=== PATIENT | female | born 1965 | race Asian ===

== ENCOUNTER 2018-03-03 07:55 | Inpatient (IN) | payer OTHER, BC ==
[~2018-03-03] VITALS: Ht 154.9 cm; Wt 77.1 kg
[~2018-03-03 07:55] MED LIST: VITAMIN D32000 UNIT PO
--- NOTE | 2018-03-03 09:20 | NUR ---
History, Chart, Medications and Allergies reviewed before start of procedure. Lungs clear T/O to Auscultation.
[2018-03-03 17:06] LABS: BASOPHILS ABSOLUTE AUTO 0.03 K/mm3 (0.00-0.23); BASOPHILS PERCENT AUTO 0 % (0-2); EOSINOPHILS PERCENT AUTO 0 % (0-6); Hematocrit 34.3 % (33.0-51.0); Hemoglobin 10.9 g/dL (11.5-16.0); IMMATURE GRAN ABSOLUTE AUTO 0.04 K/mm3 (0.00-0.10); IMMATURE GRAN PERCENT AUTO 0 % (0-1); LYMPHOCYTES ABSOLUTE AUTO 0.74 K/mm3 (0.84-5.20); LYMPHOCYTES PERCENT AUTO 5 % (21-46); MONOCYTES ABSOLUTE AUTO 0.25 K/mm3 (0.16-1.47); MONOCYTES PERCENT AUTO 2 % (4-13); Mean Corpuscular HGB 28.5 pg (26.0-34.0); Mean Corpuscular HGB Conc 31.8 g/dL (31.5-36.5); Mean Corpuscular Volume 90 fL (80-100); Mean Platelet Volume 11.1 fL (9.1-12.4); NEUTROPHILS ABSOLUTE AUTO 13.27 K/mm3 (1.96-9.15); NEUTROPHILS PERCENT AUTO 93 % (41-73); Platelet Count 230 K/mm3 (150-400); RDW Coefficient Variation 13.5 % (11.7-14.2); RDW Standard Deviation 44.5 fL (35.1-46.3); Red Blood Cell Count 3.83 M/mm3 (3.80-5.20); White Blood Cell Count 14.33 K/mm3 (4.00-11.30)
--- NOTE | 2018-03-03 18:33 | NUR ---
PT HAS BEEN STABLE POST. PT HAS NOT HAD ANY REPORTED PAIN, MANAGER WATER AVAILABLE IF NEEDED. PT AMBULATED THE HALLWAY WELL. ZAFAR DRAINING CLEAR URINE. CONT IV FLUIDS ORDERED. ZAFAR TO BE DC'D IN THE AM. PT EATING AND DRINKING WELL, NO NAUSEA. NO VAGINAL DRAINAGE NOTED, HAYLEY PAD IN PLACE. PROVENA WOUND VAC TO MIDLINE ABD, CDI. KPAD IN USE FOR COMFORT. AM CBC TO BE REPEATED.
--- NOTE | 2018-03-04 04:23 | NUR ---
SHIFT SUMMARY: PT POD 1 ABD HYSTER. PAIN MANAGED WITH CATTLE BROKER PUMP. PT STATES PAIN IS WELL CONTROLLED. BOYD REG DIET. REPORTS PASSING FLATUS. DRINKING PLENTY OF PO FLUIDS. ADEQUATE URINE OUTPUT FROM ZAFAR. C/O MILD HEADACHE. GIVEN ICE PACK AND WATER. PT APPEARS TO BE RESTING COMFORTABLY.
--- NOTE | 2018-03-04 05:29 | NUR ---
BP IN RIGHT ARM 96/46. RECHECKED 10 MIN AFTER IN L ARM WITH BP OF 114/64. PT ASYMPTOMATIC. CON TO MONITOR BP CLOSELY.
[2018-03-04 05:58] LABS: BASOPHILS ABSOLUTE AUTO 0.04 K/mm3 (0.00-0.23); BASOPHILS PERCENT AUTO 0 % (0-2); EOSINOPHILS ABSOLUTE AUTO 0.02 K/mm3 (0.00-0.68); EOSINOPHILS PERCENT AUTO 0 % (0-6); Hematocrit 34.9 % (33.0-51.0); Hemoglobin 11.1 g/dL (11.5-16.0); IMMATURE GRAN ABSOLUTE AUTO 0.04 K/mm3 (0.00-0.10); IMMATURE GRAN PERCENT AUTO 0 % (0-1); LYMPHOCYTES ABSOLUTE AUTO 2.34 K/mm3 (0.84-5.20); LYMPHOCYTES PERCENT AUTO 17 % (21-46); MONOCYTES ABSOLUTE AUTO 1.06 K/mm3 (0.16-1.47); MONOCYTES PERCENT AUTO 8 % (4-13); Mean Corpuscular HGB 28.1 pg (26.0-34.0); Mean Corpuscular HGB Conc 31.8 g/dL (31.5-36.5); Mean Corpuscular Volume 88 fL (80-100); Mean Platelet Volume 11.1 fL (9.1-12.4); NEUTROPHILS ABSOLUTE AUTO 10.17 K/mm3 (1.96-9.15); NEUTROPHILS PERCENT AUTO 74 % (41-73); Platelet Count 236 K/mm3 (150-400); RDW Coefficient Variation 13.6 % (11.7-14.2); RDW Standard Deviation 44.4 fL (35.1-46.3); Red Blood Cell Count 3.95 M/mm3 (3.80-5.20); White Blood Cell Count 13.67 K/mm3 (4.00-11.30)
--- NOTE | 2018-03-04 14:35 | NUR ---
ASSUMED CARE OF PT. PT IS RESTING CALMLY IN BED. STATES POSSIBLY OVERDID IT A LITTLE BIT WITH AMBULATION TODAY. BUT DENIES ANY NEED FOR PAIN MEDS. HAS BEEN TOLERATING PO. VOIDING WELL AND PASSING FLATUS. DENIES ANY NEEDS AT THIS TIME. CALL LIGHT IN REACH.
--- NOTE | 2018-03-04 18:03 | NUR ---
POD 1 S/P DOMINIQUE. DOING WELL. HAS BEEN UP AMBULATING IN HALLWAY. PASSING FLATUS. VOIDING WELL. PROVENA INTACT. PAIN IS TOLERABLE. PROBABLE DC HOME IN THE MORNING. CALL LIGHT IN REACH.
--- NOTE | 2018-03-05 06:31 | NUR ---
SUMMARY PT HAS TAKEN ONLY 1 PO PAIN MEDS TONIGHT WITH REPORTED GOOD EFFECT. SLEPT QUIETLY. NO DISTRESS.
[2018-03-05] MEDS ORDERED: DOCU100 PO (10:50)
[2018-03-05] MEDS ORDERED: NAPR500 PO (10:51)
[2018-03-05] MEDS ORDERED: HYDR1TAB94 PO (10:51)
[2018-03-05] MEDS ORDERED: MIRALAX17 GM PO (10:52)
== END 2018-03-05 11:45 | disposition home or self-care (01) | DRG 743 ==
LOC: SURS 07:55 → PRE IP 09:30 → SURS 12:56
PROVIDERS: ADMIT Obstetrics & Gynecology Gynecology
PROC: 0UT20ZZ Resection of Bilateral Ovaries, Open Approach (ICD-10-PCS; 2018-03-03)
PROC: 0UT70ZZ Resection of Bilateral Fallopian Tubes, Open Approach (ICD-10-PCS; 2018-03-03)
PROC: 0UT90ZZ Resection of Uterus, Open Approach (ICD-10-PCS; principal; 2018-03-03 09:30)
DX: D25.9 Leiomyoma of uterus, unspecified (principal); N83.202 Unspecified ovarian cyst, left side; N85.2 Hypertrophy of uterus
CPT/HCPCS: 36415; 85025; 88307; J0690; J1100; J1885; J2250; J2270; J2405; J2710; J3010; J7120